=== PATIENT | male | born 1990 | race Caucasian/White ===

== ENCOUNTER 2021-06-06 12:55 | Emergency (ER) | payer BC, OTHER ==
[~2021-06-06] VITALS: Ht 190.5 cm; Wt 111.1 kg
--- NOTE | 2021-06-06 12:55 | NUR ---
BIBS FOR C/O RIGHT LOWER AND UPPER BACK PAIN RADIATING TO ABD S/P. VITALS ARE WITHIN NORMAL LIMITS. BREATHING IS EVEN AND UNLABORED.
[2021-06-06] MEDS ORDERED: IBUP-1955 PO (14:02)
--- NOTE | 2021-06-06 14:19 | NUR ---
ULTRASOUND AT BEDSIDE
[2021-06-06 15:17] VITALS: BP 128/71
--- NOTE | 2021-06-06 15:17 | NUR ---
Patient discharged to home in stable condition. Written and verbal after care instructions given. Patient verbalizes understanding of instruction.
== END 2021-06-06 15:18 | disposition home or self-care (01) ==
LOC: ER 13:00
DX: M79.604 Pain in right leg (principal)
CPT/HCPCS: 93971-TC